=== PATIENT | male | born 1990 | race Caucasian/White ===

== ENCOUNTER 2016-12-01 20:28 | Inpatient (IN) | payer BC, OTHER ==
--- NOTE | 2016-12-01 21:07 | HP ---
CIWA Score - CIWA Score Nausea/Vomitin-Mild Nausea/No Vomiting Muscle Tremors: 3 Anxiety: 4-Mod. Anxious/Guarded Agitation: 4-Moderately Restless Paroxysmal Sweats: 2 Orientation: 0-Oriented Tacttile Disturbances: 0-None Auditory Disturbances: 0-None Visual Disturbances: 0-None Headache: 1-Very Mild CIWA-Ar Total Score: 15 Admission ROS BHS - HPI Chief Complaint: WITHDRAWAL SYMPTOMS Allergies/Adverse Reactions: Allergies Allergy/AdvReac Type Severity Reaction Status Date / Time penicillin G Allergy Severe Hives Verified 12/01/16 21:28 History of Present Illness: 26 Y.O. MAN WITH A HISTORY OF XANAX AND COCAINE DEPENDENCE IS SEEKING DETOX. HE HAS HAD MULTIPLE ADMISSIONS FOR REHAB AND DETOX AT OTHER FACILITIES. HE ALSO HAD A HISTORY OF OPIATE DEPENDENCE BUT HE REPORTS HE DETOXED HIMSELF FROM HEROIN AND SUBUTEX IN 2015. Exam Limitations: No Limitations - Ebola screening Have you traveled outside of the country in the last 21 days: No (N) Have you had contact with anyone from an Ebola affected area: No Do you have a fever: No - Review of Systems Constitutional: Loss of Appetite, Malaise, Unintentional Wgt. Loss EENT: reports: Blurred Vision, Double Vision, Nose Congestion Respiratory: reports: No Symptoms reported Cardiac: reports: No Symptoms Reported GI: reports: No Symptoms Reported, Poor Appetite : reports: No Symptoms Reported Musculoskeletal: reports: Muscle Weakness Integumentary: reports: No Symptoms Reported Neuro: reports: Tremors Endocrine: reports: No Symptoms Reported Hematology: reports: No Symptoms Reported Psychiatric: reports: Anxious, Depressed Other Systems: Reviewed and Negative Patient History - Patient Medical History Hx Anemia: No Hx Asthma: No Hx Chronic Obstructive Pulmonary Disease (COPD): No Hx Cancer: No Hx Cardiac Disorders: No Hx Congestive Heart Failure: No Hx Hypertension: No Hx Hypercholesterolemia: No Hx Pacemaker: No HX Cerebrovascular Accident: No Hx Seizures: Yes (BENZO RELATED: LAST 12/2015) Hx Dementia: No Hx Diabetes: No Hx Gastrointestinal Disorders: No Hx Liver Disease: No Hx Genitourinary Disorders: No Hx Sexually Transmitted Disorders: No Hx Renal Disease (ESRD): No Hx Thyroid Disease: No Hx Human Immunodeficiency Virus (HIV): No Hx Hepatitis C: No Hx Depression: Yes Hx Suicide Attempt: No Hx Bipolar Disorder: Yes (NOT ON MEDS ) Hx Schizophrenia: No - Patient Surgical History Past Surgical History: No Hx Neurologic Surgery: No Hx Cataract Extraction: No Hx Cardiac Surgery: No Hx Lung Surgery: No Hx Breast Surgery: No Hx Breast Biopsy: No Hx Abdominal Surgery: No Hx Appendectomy: No Hx Cholecystectomy: No Hx Genitourinary Surgery: No Hx Section: No Hx Orthopedic Surgery: No Anesthesia Reaction: No - PPD History Previous Implant?: Yes Documented Results: Negative w/o proof Implanted On Prior [facility] Admission?: Yes Date: 01/16/13 Results: 0 PPD to be Administered?: Yes - Reproductive History Patient is a Female of Child Bearing Age (11 -55 yrs old): No - Smoking Cessation Smoking history: Current every day smoker Have you smoked in the past 12 months: Yes Aproximately how many cigarettes per day: 10 Hx Chewing Tobacco Use: No Initiated information on smoking cessation: Yes 'Breaking Loose' booklet given: 12/01/16 - Substance & Tx. History Hx Alcohol Use: No Hx Substance Use: Yes Substance Use Type: Cocaine, Heroin, Marijuana Hx Substance Use Treatment: Yes (DETOX AND REHAB ) - Substances Abused Alprazolam (Xanax) Route: Oral Frequency: Daily Amount used: 5-6 STICKS Age of first use: 18 Date of Last Use: 12/01/16 Cocaine Route: Inhalation Frequency: Daily Amount used: 2-3 GM Age of first use: 20 Date of Last Use: 12/01/16 Family Disease History - Family Disease History Family Disease History: Diabetes: Grandparent, Other: Father (DRUG AND ALCOHOL DEPENDENT ) Admission Physical Exam BHS - Vital Signs Vital Signs: Last Vital Signs Temp Pulse Resp BP Pulse Ox 97.4 F L 86 20 141/66 12/01/16 21:09 12/01/16 21:09 12/01/16 21:09 12/01/16 21:09 - Physical General Appearance: Yes: Tremorous, Irritable, Anxious HEENTM: Yes: Normocephalic, Normal Voice, JR, Nasal Congestion Respiratory: Yes: Chest Non-Tender, Lungs Clear, Normal Breath Sounds, No Respiratory Distress, No Accessory Muscle Use Neck: Yes: No masses,lesions,Nodules Breast: Yes: Breast Exam Deferred Cardiology: Yes: Regular Rhythm, Regular Rate Abdominal: Yes: Normal Bowel Sounds, Non Tender, Flat, Soft Genitourinary: Yes: Within Normal Limits Back: Yes: Normal Inspection Musculoskeletal: Yes: full range of Motion, Gait Steady, Pelvis Stable Extremities: Yes: Normal Inspection, Normal Range of Motion, Non-Tender, Tremors Neurological: Yes: Fully Oriented, Alert, Normal Mood/Affect, Normal Response Integumentary: Yes: Normal Color, Dry, Warm Lymphatic: Yes: Within Normal Limits - Diagnostic (1) Sedative, hypnotic or anxiolytic dependence with withdrawal, uncomplicated Current Visit: Yes Status: Chronic (2) Cocaine dependence Current Visit: Yes Status: Chronic Cleared for Admission [facility] - Detox or Rehab [facility] Level of Care: Medically Managed Detox Regimen/Protocol: Valium [facility] Breath Alcohol Content Breath Alcohol Content: 0
[2016-12-01] MEDS ORDERED: MAGNESIUM CITRATE 300 ML BOTTLE PO PRN (21:26)
[2016-12-01] MEDS ORDERED: NICOTINE POLACRILEX 2 MG GUM BC PRN (21:26)
[2016-12-01] MEDS ORDERED: MAGNESIUM HYDROX 2400MG/30ML ORAL SUSPENSION 30 ML CUP PO PRN (21:26)
[2016-12-01] MEDS ORDERED: hydrOXYzine PAMOATE 50 MG CAPSULE (FP) PO PRN (21:26)
[2016-12-01] MEDS ORDERED: P-EPHED 60MG/TRIPROLIDI 2.5MG TABLET PO PRN (21:26)
[2016-12-01] MEDS ORDERED: diazePAM 5 MG TABLET PO PRN (21:26)
[2016-12-01] MEDS ORDERED: LOPERAMIDE HCL 2 MG CAPSULE PO PRN (21:26)
[2016-12-01] MEDS ORDERED: guaiFENesin/D-METHORPHAN HB 10 ML UNIT-DOSE CUPS PO PRN (21:26)
[2016-12-01] MEDS ORDERED: MENTHOL/PHENOL 1 EACH UD MM PRN (21:26)
[2016-12-01] MEDS ORDERED: IBUPROFEN 400 MG TABLET (FP) PO PRN (21:26)
[2016-12-01] MEDS ORDERED: ACETAMINOPHEN 325 MG TABLET (FP) PO PRN (21:26)
[2016-12-01] MEDS ORDERED: diazePAM 5 MG TABLET PO ONE (21:26)
[2016-12-01 21:28] VITALS: BMI 22.6
[2016-12-01] MEDS ORDERED: diazePAM 5 MG TABLET PO SCH (22:00)
[2016-12-02] MEDS ORDERED: diazePAM 5 MG TABLET PO ONE (00:20)
[2016-12-02] MEDS: diphenhydrAMINE HCL 50 MG CAPSULE PO PRN (01:10)
[2016-12-02] MEDS: diazePAM 5 MG TABLET PO SCH ×3 (06:15→22:12)
[2016-12-02] MEDS: NICOTINE 14 MG/24 HOURS TOPICAL PATCH TD SCH (10:16)
[2016-12-02] MEDS: diazePAM 5 MG TABLET PO PRN ×2 (10:18→19:17)
[2016-12-02] MEDS: PRENATAL VITAMINS W/ FOLIC ACID TABLET (FP) PO SCH (10:18)
[2016-12-02 11:00] LABS: MCH 31.7 pg (25.7-33.7); MEAN CELL VOLUME 90.5 fl (80-96); MEAN PLT VOLUME 9.1 fl (7.5-11.1); PLATELET COUNT 261 K/MM3 (134-434); RDW 14.2 % (11.9-15.9); WHITE BLOOD COUNT 9.1 K/mm3 (4.0-10.0)
[2016-12-02 11:12] LABS: ALBUMIN 3.5 g/dl (3.4-5.0); ANION GAP 6 (8-16); CO2 32 mmol/L (21-32); GLUCOSE,RANDOM 94 mg/dL (74-106)
[2016-12-02 11:15] LABS: ALK PHOS 79 U/L (45-117); BILIRUBIN,TOTAL 0.5 mg/dL (0.2-1.0); CREATININE 1.1 mg/dL (0.7-1.3); SGOT/AST 12 U/L (15-37); SGPT/ALT 18 U/L (12-78); TOT PROT 6.1 g/dl (6.4-8.2)
--- NOTE | 2016-12-02 11:46 | PN ---
S CIWA - CIWA Score Nausea/Vomitin Muscle Tremors: 2 Anxiety: 3 Agitation: 3 Paroxysmal Sweats: 3 Orientation: 0-Oriented Tacttile Disturbances: 2-Mild Itch/Numbness/Burn Auditory Disturbances: 0-None Visual Disturbances: 0-None Headache: 0-None Present CIWA-Ar Total Score: 15 S Progress Note (SOAP) Subjective: INTERRUPTED SLEEP, SWEATS, WEAKNESS Objective: 12/02/16 11:47 Vital Signs Temperature 97.2 F L 12/02/16 10:32 Pulse Rate 73 12/02/16 10:32 Respiratory Rate 18 12/02/16 10:32 Blood Pressure 131/56 12/02/16 10:32 O2 Sat by Pulse Oximetry (%) Laboratory Tests 12/02/16 12/02/16 06:30 06:30 WBC 9.1 D RBC 4.77 Hgb 15.1 Hct 43.2 MCV 90.5 MCHC 35.0 RDW 14.2 D Plt Count 261 D MPV 9.1 Sodium 142 Potassium 3.6 Chloride 104 Carbon Dioxide 32 Anion Gap 6 L BUN 11 D Creatinine 1.1 D Creat Clearance w eGFR > 60 Random Glucose 94 D Calcium 9.0 Total Bilirubin 0.5 D AST 12 L D ALT 18 Alkaline Phosphatase 79 Total Protein 6.1 L Albumin 3.5 PT AOX3 IN NAD AMBULATING 12/02/16 11:49 Assessment: 12/02/16 11:48 WITHDRAWL SX;S Plan: CONT. DETOX INCREASE FLUIDS
--- NOTE | 2016-12-02 12:40 | CONSULT ---
[facility] Psychiatric Consult - Data Date of interview: 12/02/16 Admission source: [facility] Identifying data: Admission to [facility] for this 26 y/o male seeking detoxification treatment on for heroin,cocaine,marijuana,benzodiazepine (xanax) and MDMA dependence.Patient is single without children,domiciled (lives with his mother) and employed (occupation not revealed). Substance Abuse History: - Smoking Cessation. Smoking history: Current every day smoker. Have you smoked in the past 12 months: Yes. Aproximately how many cigarettes per day: 10. Hx Chewing Tobacco Use: No. Initiated information on smoking cessation: Yes. 'Breaking Loose' booklet given: 12/01/16. - Substance & Tx. History. Hx Alcohol Use: No. Hx Substance Use: Yes. Substance Use Type : Cocaine, Heroin, Marijuana. Hx Substance Use Treatment: Yes (DETOX AND REHAB ). - Substances Abused. Alprazolam (Xanax). Route: Oral. Frequency: Daily. Amount used: 5-6 STICKS. Age of first use: 18. Date of Last Use: 12/01. Cocaine. Route: Inhalation. Frequency: Daily. Amount used: 2-3 GM. Age of first use: 20. Date of Last Use: 12/01/16. Confirmed by patient. Medical History: Consistent with a history of withdrawal seizures (2016). Psychiatric History: Patient admits to a history of one psychiatric hospitalization at [facility] "a long time ago".Mr Bear states that " it was all due to drugs.I had used an awful lot of coke and I lost it." No recollection of the medications utilized at the time.No OPD care as recommended.Patient reports that he has not taken psychotropic medications since discharge from [facility] ([facility]).He denies history of suicide attempts.Review of pharmacy claims shows that recent scripts were issued (until 02/2016) for buspar,lexapro,olanzapine,buprenorphine by various providers.It has become clear that the patient is not a reliable historian.Mr Bear declines to resume psychotropic medications in this hospital course. Physical/Sexual Abuse/Trauma History: Patient denies. Additional Comment: Drug screen :not available. Mental Status Exam - Mental Status Exam Alert and Oriented to: Time, Place, Person Cognitive Function: Good Patient Appearance: Well Groomed Mood: Nervous, Withdrawn Affect: Mood Congruent Patient Behavior: Passive, Sedated, Fatigued, Cooperative Speech Pattern: Clear Voice Loudness: Normal Thought Process: Goal Oriented Thought Disorder: Not Present Hallucinations: Denies Suicidal Ideation: Denies Homicidal Ideation: Denies Insight/Judgement: Poor Sleep: Well Appetite: Good Muscle strength/Tone: Normal Gait/Station: Normal Psychiatric Findings - Problem List ([place] 1, 2,3) (1) Opioid dependence Current Visit: Yes Status: Active (2) Cocaine dependence Current Visit: Yes Status: Acute (3) Sedative, hypnotic or anxiolytic dependence with withdrawal, uncomplicated Current Visit: Yes Status: Acute (4) Nicotine dependence Current Visit: Yes Status: Acute (5) Marijuana dependence Current Visit: Yes Status: Acute (6) MDMA abuse Current Visit: Yes Status: Acute (7) Substance induced mood disorder Current Visit: Yes Status: Acute - Initial Treatment Plan Initial Treatment Plan: Psychoeducation.Detoxification.Observation.
[2016-12-02] MEDS: THIAMINE HCL 100 MG TABLET (FP) PO SCH ×2 (22:12→23:52)
[2016-12-03] MEDS: diazePAM 5 MG TABLET PO SCH ×3 (05:36→22:11)
[2016-12-03] MEDS: diazePAM 5 MG TABLET PO PRN ×2 (08:57→17:43)
[2016-12-03] MEDS ORDERED: diazePAM 5 MG TABLET PO SCH (10:00)
[2016-12-03] MEDS: PRENATAL VITAMINS W/ FOLIC ACID TABLET (FP) PO SCH (10:17)
[2016-12-03] MEDS: NICOTINE 14 MG/24 HOURS TOPICAL PATCH TD SCH (11:00)
[2016-12-03 11:20] LABS: URINE APPEARANCE CLEAR; URINE BILIRUBIN NEGATIVE (NEGATIVE); URINE BLOOD NEGATIVE (NEGATIVE); URINE COLOR LTYELLOW; URINE GLUCOSE (UA) NEGATIVE (NEGATIVE); URINE KETONE NEGATIVE (NEGATIVE); URINE NITRITE NEGATIVE (NEGATIVE); URINE PROTEIN NEGATIVE (NEGATIVE); URINE UROBILINOGEN NEGATIVE E.U./dl (0.2-1.0)
[2016-12-03 11:21] LABS: URINE LEUK ESTERASE TRACE (NEGATIVE)
[2016-12-03 11:23] LABS: URINE MUCUS RARE; URINE RBC <1 /hpf (0-3); URINE WBC 1 /hpf (3-5)
[2016-12-03] MEDS ORDERED: cloNIDine HCL 0.1 MG TABLET PO ONE (11:41)
[2016-12-03] MEDS: MAG HYDROX/AL HYDROX/SIMETH 30 ML UNIT-DOSE CUP PO PRN (11:42)
--- NOTE | 2016-12-03 11:42 | PN ---
S CIWA - CIWA Score Nausea/Vomitin-No Nausea/No Vomiting Muscle Tremors: 4-Moderate,w/Arms Extend Anxiety: 4-Mod. Anxious/Guarded Agitation: 4-Moderately Restless Paroxysmal Sweats: 3 Orientation: 0-Oriented Tacttile Disturbances: 0-None Auditory Disturbances: 0-None Visual Disturbances: 0-None Headache: 1-Very Mild CIWA-Ar Total Score: 16 BHS Progress Note (SOAP) Subjective: anxiety sweats agitation interrupted sleep Objective: 12/03/16 11:43 Vital Signs Temperature 97.9 F 12/03/16 11:21 Pulse Rate 85 12/03/16 11:21 Respiratory Rate 18 12/03/16 11:21 Blood Pressure 155/78 12/03/16 11:21 O2 Sat by Pulse Oximetry (%) Laboratory Tests 12/02/16 12/02/16 12/02/16 06:30 06:30 06:30 WBC 9.1 D RBC 4.77 Hgb 15.1 Hct 43.2 MCV 90.5 MCHC 35.0 RDW 14.2 D Plt Count 261 D MPV 9.1 Sodium 142 Potassium 3.6 Chloride 104 Carbon Dioxide 32 Anion Gap 6 L BUN 11 D Creatinine 1.1 D Creat Clearance w eGFR > 60 Random Glucose 94 D Calcium 9.0 Total Bilirubin 0.5 D AST 12 L D ALT 18 Alkaline Phosphatase 79 Total Protein 6.1 L Albumin 3.5 Urine Color Urine Appearance Urine pH Ur Specific [place] Urine Protein Urine Glucose (UA) Urine Ketones Urine Blood Urine Nitrite Urine Bilirubin Urine Urobilinogen Ur Leukocyte Esterase Urine RBC Urine WBC Urine Mucus RPR Titer Nonreactive 12/03/16 07:00 WBC RBC Hgb Hct MCV MCHC RDW Plt Count MPV Sodium Potassium Chloride Carbon Dioxide Anion Gap BUN Creatinine Creat Clearance w eGFR Random Glucose Calcium Total Bilirubin AST ALT Alkaline Phosphatase Total Protein Albumin Urine Color Ltyellow Urine Appearance Clear Urine pH 6.0 Ur Specific [place] 1.015 Urine Protein Negative Urine Glucose (UA) Negative Urine Ketones Negative Urine Blood Negative Urine Nitrite Negative Urine Bilirubin Negative Urine Urobilinogen Negative Ur Leukocyte Esterase Trace H Urine RBC <1 Urine WBC 1 Urine Mucus Rare RPR Titer awake/alert ambulating no acute distress Assessment: 12/03/16 11:44 withdrawal sx Plan: continue detox increase fluids clonidine 0.1mg x one
[2016-12-03] MEDS: diphenhydrAMINE HCL 50 MG CAPSULE PO PRN (22:11)
[2016-12-03] MEDS: THIAMINE HCL 100 MG TABLET (FP) PO SCH (22:11)
[2016-12-04] MEDS: diazePAM 5 MG TABLET PO PRN ×3 (07:01→19:35)
[2016-12-04] MEDS: PRENATAL VITAMINS W/ FOLIC ACID TABLET (FP) PO SCH (10:45)
[2016-12-04] MEDS: diazePAM 5 MG TABLET PO SCH ×2 (10:46→22:10)
[2016-12-04] MEDS: NICOTINE 14 MG/24 HOURS TOPICAL PATCH TD SCH (10:46)
--- NOTE | 2016-12-04 11:38 | PN ---
BHS Progress Note (SOAP) Subjective: feeling better , sleeping better Objective: 12/04/16 11:37 Vital Signs Temperature 97.7 F 12/04/16 10:03 Pulse Rate 89 12/04/16 10:03 Respiratory Rate 16 12/04/16 10:03 Blood Pressure 154/87 12/04/16 10:03 O2 Sat by Pulse Oximetry (%) Laboratory Tests 12/02/16 12/02/16 12/02/16 06:30 06:30 06:30 WBC 9.1 D RBC 4.77 Hgb 15.1 Hct 43.2 MCV 90.5 MCHC 35.0 RDW 14.2 D Plt Count 261 D MPV 9.1 Sodium 142 Potassium 3.6 Chloride 104 Carbon Dioxide 32 Anion Gap 6 L BUN 11 D Creatinine 1.1 D Creat Clearance w eGFR > 60 Random Glucose 94 D Calcium 9.0 Total Bilirubin 0.5 D AST 12 L D ALT 18 Alkaline Phosphatase 79 Total Protein 6.1 L Albumin 3.5 Urine Color Urine Appearance Urine pH Ur Specific [place] Urine Protein Urine Glucose (UA) Urine Ketones Urine Blood Urine Nitrite Urine Bilirubin Urine Urobilinogen Ur Leukocyte Esterase Urine RBC Urine WBC Urine Mucus RPR Titer Nonreactive 12/03/16 07:00 WBC RBC Hgb Hct MCV MCHC RDW Plt Count MPV Sodium Potassium Chloride Carbon Dioxide Anion Gap BUN Creatinine Creat Clearance w eGFR Random Glucose Calcium Total Bilirubin AST ALT Alkaline Phosphatase Total Protein Albumin Urine Color Ltyellow Urine Appearance Clear Urine pH 6.0 Ur Specific [place] 1.015 Urine Protein Negative Urine Glucose (UA) Negative Urine Ketones Negative Urine Blood Negative Urine Nitrite Negative Urine Bilirubin Negative Urine Urobilinogen Negative Ur Leukocyte Esterase Trace H Urine RBC <1 Urine WBC 1 Urine Mucus Rare RPR Titer pt aox3 in nad ambulating Assessment: 12/04/16 11:38 withdrawl sx's Plan: cont. detox increase fluids
[2016-12-04] MEDS: THIAMINE HCL 100 MG TABLET (FP) PO SCH (22:10)
[2016-12-04] MEDS: diphenhydrAMINE HCL 50 MG CAPSULE PO PRN (22:10)
[2016-12-05] MEDS ORDERED: diazePAM 5 MG TABLET PO SCH (10:00)
[2016-12-05] MEDS: PRENATAL VITAMINS W/ FOLIC ACID TABLET (FP) PO SCH (10:22)
[2016-12-05] MEDS: NICOTINE 14 MG/24 HOURS TOPICAL PATCH TD SCH (10:22)
[2016-12-05] MEDS: diazePAM 5 MG TABLET PO SCH ×2 (10:22→22:11)
--- NOTE | 2016-12-05 11:36 | PN ---
BHS Progress Note (SOAP) Subjective: agitation Objective: 12/05/16 11:35 Vital Signs Temperature 98.1 F 12/05/16 10:12 Pulse Rate 98 H 12/05/16 10:12 Respiratory Rate 18 12/05/16 10:12 Blood Pressure 138/93 12/05/16 10:12 O2 Sat by Pulse Oximetry (%) awake/alert ambulating no acute distress Assessment: 12/05/16 11:35 withdrawal sx Plan: continue detox increase fluids d/c in am
[2016-12-05] MEDS: THIAMINE HCL 100 MG TABLET (FP) PO SCH (22:11)
[2016-12-05] MEDS: diphenhydrAMINE HCL 50 MG CAPSULE PO PRN (22:12)
[2016-12-05] MEDS: MAG HYDROX/AL HYDROX/SIMETH 30 ML UNIT-DOSE CUP PO PRN (22:37)
--- NOTE | 2016-12-06 08:07 | PN ---
S Progress Note (SOAP) Subjective: ALERT,NO COMPLAINT Objective: 12/06/16 08:06 Vital Signs Temperature 98.6 F 12/06/16 07:15 Pulse Rate 61 12/06/16 07:15 Respiratory Rate 16 12/06/16 07:15 Blood Pressure 135/70 12/06/16 07:15 O2 Sat by Pulse Oximetry (%) Assessment: 12/06/16 08:06 DETOX COMPLETED,NO WITHDRAWAL SYMPTOM Plan: DISCHARGE TODAY,FOLLOW UP WITH AFTER CARE PROGRAM ARRANGEMENT
--- NOTE | 2016-12-06 08:09 | DS ---
[facility] Detox Discharge Summary Admission Date: 12/02/16 Discharge Date: 12/06/16 - History Present History: Cocaine Dependence, Sedative Dependence Additional Comments: FOLLOW UP WITH AFTER CARE PROGRAM ARRANGEMENT - Physical Exam Results Vital Signs: Vital Signs Temperature 98.6 F 12/06/16 07:15 Pulse Rate 61 12/06/16 07:15 Respiratory Rate 16 12/06/16 07:15 Blood Pressure 135/70 12/06/16 07:15 O2 Sat by Pulse Oximetry (%) Pertinent Admission Physical Exam Findings: WITHDRAWAL SYMPTOM - Treatment Hospital Course: Detox Protocol Followed, Detoxed Safely, Responded well, Discharged Condition Good Patient has Accepted a Rehab Referral to: DECLINED - Medication Discharge Medications: Ambulatory Orders Clonazepam [Klonopin] 0.5 mg PO DAILY PRN 01/14/13 Sertraline HCl [Zoloft] 150 mg PO HS 01/14/13 - AMA Did Patient Leave Against Medical Advice: No
[2016-12-06 09:35] VITALS: BP 96/65; PULSE 91; TEMP 97.7
[2016-12-06] MEDS ORDERED: diazePAM 5 MG TABLET PO SCH (10:00)
== END 2016-12-06 09:52 | disposition home or self-care (01) | DRG 897 ==
LOC: YASAS 20:28 → Y6N 12-02 00:19
PROVIDERS: ADMIT Internal Medicine; ATTEND Internal Medicine
PROC: HZ2ZZZZ Detoxification Services for Substance Abuse Treatment (ICD-10-PCS; principal; 2016-12-02)
DX: F13.230 Sedative, hypnotic or anxiolytic dependence with withdrawal, uncomplicated (principal); F14.20 Cocaine dependence, uncomplicated; F12.20 Cannabis dependence, uncomplicated; F17.210 Nicotine dependence, cigarettes, uncomplicated; F19.24 Other psychoactive substance dependence with psychoactive substance-induced mood disorder; Z86.69 Personal history of other diseases of the nervous system and sense organs
CPT/HCPCS: 36415; 80053; 81003; 81015; 85027; 86593; 93005; 93010